=== PATIENT | male | born 1950 | race Caucasian/White ===

== ENCOUNTER 2024-07-29 06:16 | Emergency (ER) | payer MEDICARE, BC, SELFPAY ==
[2024-07-29] VITALS (20 sets, daily range): BP systolic 91–162; BP diastolic 52–107; PULSE 62–96; RESP 11–39; TEMP 36.6; O2SAT 89–98; BMI 27.2
--- OUTSIDE RECORDS SUMMARY | 2024-07-29 06:18 | XMS_ITS | Clinical Summary ---
Author Organization [email or web address] Address [address] [place] [id number] Care Team Providers Care Premium Cancellation Clerk Name Role Phone Brianna Garcia MD Primary Care Provider [phone] Allergies No known active allergies Medications timoloL maleate (TIMOPTIC) 0.5 % ophthalmic solution Place 1 Drop into both eyes 2 times daily. 05/16/19 22 Active aspirin (ECOTRIN) 81 mg enteric coated tablet Take 1 Tablet (81 mg) by mouth once daily with a meal. 0 02/24/19 23 Active latanoprost (XALATAN) 0.005 % ophthalmic solution Place 1 Drop into right eye once daily in the evening. 12/20/19 23 Active rosuvastatin 10 mg tabletIndications: Hyperlipidemia, unspecified hyperlipidemia type Take 1 Tablet (10 mg) by mouth at bedtime. 90 Tablet 3 07/24/19 25 Active rosuvastatin 5 mg tabletIndications: Hyperlipidemia, unspecified hyperlipidemia type Take 1 Tablet (5 mg) by mouth at bedtime. 90 Tablet 3 05/21/19 25 025 Discontin ued(*Medi cation adjustmen t) nitroglycerin 0.4 mg sublingual tabletIndications: Preprocedural cardiovascular examination Place 2 Tablets (0.8 mg) under the tongue one time. 07/22/19 25 025 Discontin ued(*Med complete/ Regimen complete/ Level of care change) lidocaine 2% (PF) 100 mg/5 mL (2 %) injectionIndicatio ns:Preprocedural examination Inject 80 mg intravenous one time. 07/22/19 25 025 Discontin ued(*Med complete/ Regimen complete/ Level of care change) Active Problems Problem Noted Date Diagnosed Date Atrial fibrillation 07/28/2024 Overview (07/28/2024): Identified on Zio patch 07/2024 Pulmonary nodules 09/08/2022 Overview (09/23/2022): Right side. Noted on CT coronary arteries July 2020. Repeat CT chest August 2022. One year follow up recommended. Hyperlipidemia 01/31/2021 Elevated coronary artery calcium score Screen for colon cancer 07/09/2008 Overview (03/14/2018): Colonoscopy 06/2008 normal repeat in 10 years Colonoscopy 02/2018 normal, repeat in 10 years Resolved Problems Problem Noted Date Diagnosed Date Resolved Date PMR (polymyalgia rheumatica) 01/31/2021 05/08/2023 Encounters Date Type Department Care Team Description 07/28/2024 10:45 AM CDT Office Visit [facility] [address] [place] [address] Brianna Garcia MD Results 07/28/2024 Travel 07/26/2024 Travel 07/25/2024 Telephone [facility] [address] [place] [address] Brianna Garcia MD Appointment 07/23/2024 Orders Only [facility] [address] [place] [address] Brianna Garcia MD <No scans attached> 07/21/2024 10:30 AM CDT Ancillary Procedure [facility] [address] [facility] [address] [place] [address] 07/21/2024 Travel 07/17/2024 Travel 07/04/2024 Travel 07/01/2024 11:45 AM CDT Office Visit [facility] [address] [place] [address] Brianna Garcia MD Blood Pressure (Stress test results); Immunization/Injection ; Immunization/Injection (COVID-19 vaccine) 07/01/2024 8:45 AM CDT Office Visit [place] [address] [place] [address] 06/30/2024 8:00 AM CDT Office Visit [facility] [address] [place] [address] Cardiovascular Diagnostic Testing (Stress echo) 06/30/2024 Travel 06/12/2024 11:00 AM CDT Ancillary Procedure [facility] [address] [place] [address] 06/12/2024 Travel 05/20/2024 4:05 PM CDT Office Visit [facility] [address] [place] [address] Brianna Garcia MD Medicare ANNUAL (subsequent) Visit (73 yr old male) 05/20/2024 Travel 05/16/2024 Travel from Last 3 Months Immunizations Immunization Administration Dates Next Due COVID-19 VACCINE SPIKEVAX (M ODERNA 50MCG/0.5ML) 12YO+ PFS 07/01/2024,12/13/2023 COVID-19 vaccine (Pfizer-Bio NTech 30mcg/0.3mL) 12YO+ BIVALENT PF, MDV 11/28/2021 COVID-19 vaccine (Pfizer-Bio NTech 30mcg/0.3mL) 12YO+ FLO-SUCROSE PF, MDV 06/13/2021 COVID-19 vaccine (Pfizer-Bio NTech 30mcg/0.3mL) PF, MDV 01/05/2021,04/24/2020,04/03/2020 Influenza, IIV3 (Age >=3 years) 12/04/2015,11/21,11/23/2010 Influenza, IIV4 11/22/2016,12/17/2014,11/27/2012 Influenza, IIV4 (=>6mos) MDV 11/24/2015 Influenza, Inactivated AIIV4 (Age 65+ Years) Preserv Free 12/14/2022,11/28/2021,11/18/2020,12/14 Influenza, Inactivated IIV3 (Age 65+ Years) Preserv Free 12/13/2023,11/19/2017 Pneumococcal Conj 20-valent (Prevnar 20) 06/30/2021 Pneumococcal Poly,23-Valent (Pneumovax) 12/15/2019 RSV, Bivalent Vaccine Recons tituted (Abrysvo 120MCG/0.5mL) 12/14/2022 Tdap 06/19/2017 Yellow Fever 03/07/2006 Zoster (Shingrix-RZV, recombinant) 01/07/2018, Zoster (Zostavax-ZVL, live) 04/03/2016 Family History Medical History Relation Name Comments Diabetes Brother 1 Heart attack Brother 1 Cancer-prostate Brother 2 Autoimmune disease Father Cancer Mother Lung Heart Disease Paternal Grandfather Diabetes Paternal Grandmother Relation Name Status Comments Brother 1 Brother 2 Brother 3 Alive Father Mother Paternal Grandfather Paternal Grandmother Social History Tobacco Use Types Packs/Day Years Used Date Smoking Tobacco: Never Smokeless Tobacco: Never Tobacco Cessation:Counseling Given: Yes Alcohol Use Standard Drinks/Week Comments Yes 0 (1 standard drink = 0.6 oz pur e alcohol) 2-3 drinks per week PHQ-2 Answer Date Recorded PHQ-2 TOTAL SCORE 0 05/20/2024 Social Connections Answer Date Recorded Do you often feel lonely or isolated from those around you? 0 05/20/2024 Financial Resource Strain Answer Date R ecorded Difficulty of Paying Living Expenses 3 05/20/2024 Difficulty of Paying Living Expenses Not on file 05/20/2024 Food Insecurity Answer Date Recorded Do you worry your food will run out before you are able to buy more? 1 05/20/2024 Transportation Needs Answer Date Record ed Does lack of transportation keep you from medica l appointments? 1 05/20/2024 Does lack of transportation keep you from work, meetings or getting things that you need? 1 05/20/2024 Housing Stability Answer Date Recorded What is your housing situation today? 1 05/20/2024 Utilities Answer Date Recorded Do you have trouble paying f or utilities (for example, heat, electricity, water, phone)? 1 05/20/2024 Sex and Gender Information Value Date Recorded Sex Assigned at Not on file Legal Sex Male 6:39 AM [employer] Gender Identity Not on file Sexual Orientation Not on file Obstetrics History Last Filed Vital Signs Vital Sign Reading Time Taken Comments Blood Pressure 107/71 07/28/2024 10:47 AM CDT Pulse 70 07/28/2024 10:47 AM CDT Temperature 37 C (98.6 F) 07/11/2021 2:31 PM CDT Respiratory Rate 16 09/28/2020 6:43 PM CDT Oxygen Saturation 99% 07/28/2024 10:47 AM CDT Inhaled Oxygen Concentration - - Weight 88.5 kg (195 lb) 07/28/2024 10:47 AM CDT Height 178 cm (5' 10.08) 05/20/2024 4:05 PM CDT Body Mass Index 27.92 05/20/2024 4:05 PM CDT Plan of Treatment Upcoming Encounters Date Type Department Care Team (Late st Contact Info) Description 09/08/2024 8:30 AM CDT Office Visit [facility] [id number] [place] [address] [address] [place] [address] Jomar Rodriguez MD [address] [place], [place] [id number] 10/01/2024 8:30 AM CDT Ancillary Procedure [facility] [address] [place] [address] Health Maintenance Due Date Last Done Comments BMI (ht and wt on same day) for age 18+ 05/20/2025 05/20/2024, 05/08/2023, 02/24/2022, Additional history exists Depression screening for age 12+ 05/20/2025 05/20/2024, 05/08/2023, 02/24/2022, Additional history exists Medicare Wellness for age 65+ 05/21/2025 05/20/2024, 05/08/2023, 02/24/2022, Additional history exists Tetanus booster 06/20/2027 06/19/2017 Colonoscopy through age 75 03/14/202803/14, 03/14/2018, 03/14/2018, Additional history exists Lipids for age 45-75 05/20/2029 05/20/2024, 05/08/2023, 02/24/2022, Additional history exists Hepatitis C screening for age 18-79 Completed 04/03/2016 Tdap Completed 06/19/2017 Zoster (shingles) series for age 50+ Completed 01/07/2018, 06/19/2017, 04/03/2016 Pneumococcal series for age 50+ Completed 06/30/2021, 12/15/2019 RSV vaccine for adults or Completed 12/14/2022 Influenza Vaccine Completed 12/13/2023, , 11/28/2021, Additional history exists COVID-19 vaccine series Completed 07/02/19, 12/13/2023, 12/14/2022, Additional history exists Hepatitis B series for 19+ Aged Out N o longer eligible based on patient's age to complete this topic Procedures Procedure Name Priority Date/Time Associated Diagnosis Comments CT CARDIAC CORONARY ARTERIES CV DUAL READ Routine 07/21/2024 11:06 AM CDT HSIEH (dyspnea on exertion) Elevated coronary artery calcium score Abnormal ECG during exercise stress test Chest pain, unspecified type CT CARDIAC CORONARY ARTERIES RAD DUAL READ Routine 07/21/2024 11:06 AM CDT HSIEH (dyspnea on exertion) Elevated coronary artery calcium score Abnormal ECG during exercise stress test EXTENDED HOLTER Routine 07/01/2024 Abnormal ECG during exercise stress test ECHO STRESS EXERCISE WO CONTRAST W COLOR W LTD DOPPLER Routine 06/30/2024 8:54 AM CDT HSIEH (dyspnea on exertion) Atypical chest pain Hyperlipidemia, unspecified hyperlipidemia type SCAN-ELECTROCARDIOG JAMMIE EKG 06/30/2024 12:00 AM CDT ECHO TTE COMPLETE WO CONTRAST Routine 06/12/2024 11:19 AM CDT HSIEH (dyspnea on exertion) CBC W PLT NO DIFF Routine 05/20/2024 5:0 0 PM CDT HSIEH (dyspnea on exertion) BASIC METABOLIC PANEL Routine 05/20/2024 5:00 PM CDT Elevated blood pressure reading without diagnosis of hypertension PSA TOTAL Routine 05/20/2024 5:00 PM CDT Screening for prostate cancer LIPID PANEL Routine 05/20/2024 5:00 PM CDT Hyperlipidemia, unspecified hyperlipidemia type PRO-BNP Routine 05/20/2024 5:00 PM CDT HSIEH (dyspnea on exertion) COLONOSCOPY SCREENING Routine 03/14/2018 11:[address] Screening for colon cancer ANTI HCV Routine 04/03/2016 4:[address] Need for hepatitis C screening test from Last 3 Months or Most Recently Relevant to Health Maintenance Results * CT CARDIAC CORONARY ARTERIES CV DUAL READ (07/21/2024 11:06 AM CDT) Anatomical Region Laterality Modality HEART Computed Tomogra phy 07/21/2024 10:3 3 AM CDT Narrative 07/21/2024 3:32 PM CDT [facility] Cardiac CT Report Name: FABIO LOONEY : Scan Date: Accession Number: [id number] Status: Final Electronically signed by Devan Palomares 15:14:42 VITALS HEIGHT: 70 in (178 cm) WEIGHT: 194 lbs (88 kgs) BSA: 2.06 m^2 BMI: 28 kg/m^2 BP: 125 / 81 mmHg BASELINE HR: 92 BPM HEART RHYTHM: Other... DESCRIBE HEART RHYTHM:: PAC, PVC FINAL IMPRESSION 1. Prominent non-obstructive coronary artery disease. A. Total coronary artery calcium score 481. EVANS percentile based on age, gender, and race is 71. B. Total atheroma plaque volume: 153 mm3; 4.1% per cent atheroma volume. (High risk plaque burden: Coronary calcium score >300 and percentage atheroma volume >=5%). 2. No coronary lesion to account for symptoms. RECOMMENDATIONS: The burden of coronary atherosclerosis places this patient at substantially increased cardiovascular event risk (10-year risk > 20%). Recommend aggressive risk factor modification. STUDY QUALITY: Study quality is good. CAD-RADS: CAD-RADS Classification 1 (<25% stenosis). CALCIUM SCORING: Total coronary artery calcium score 481. EVANS percentile based on age, gender, and race is 71. DOMINANCE: Right dominant coronary artery system. LM: The LM has non-calcified atherosclerosis. The LM has partially calcified atherosclerosis. There is a <25% LM stenosis. LAD: The proximal LAD has partially calcified atherosclerosis. There is a <25% proximal LAD stenosis. The mid LAD has non-calcified atherosclerosis. The mid LAD has partially calcified atherosclerosis. There is a <25% mid LAD stenosis. There is no distal LAD stenosis. D1: The first diagonal has non-calcified atherosclerosis. There is a <25% first diagonal stenosis. LCX: The proximal LCx has non-calcified atherosclerosis. The proximal LCx has partially calcified atherosclerosis. There is a <25% proximal LCx stenosis. The mid LCx has partially calcified atherosclerosis. There is a <25% mid LCx stenosis. There is no distal LCx stenosis. OM1: There is a <25% first obtuse marginal stenosis. RCA: The proximal RCA has non-calcified atherosclerosis. The proximal RCA has partially calcified atherosclerosis. There is a <25% proximal RCA stenosis. The mid RCA has partially calcified atherosclerosis. There is a <25% mid RCA stenosis. There is a <25% distal RCA stenosis. RIGHT PDA: There is a <25% right PDA stenosis. RIGHT PLB: There is a <25% right posterolateral stenosis. OTHER FINDINGS: Normal proximal ascending aorta. Normal pericardium. No left atrial appendage thrombus. Total atheroma plaque volume: 153 mm3 4.1% atheroma volume Coronary artery plaque quantification (calculated by [facility] analysis): (High risk plaque burden defined by any of the following: Presence of >=70% diameter stenosis Coronary calcium score >1000 Coronary calcium score >300 and percentage atheroma volume >=5% Percentage atheroma volume >15%) CALCIUM SCORING TABLE . . Number of Lesions Pattern of Calcium Volume Total Score +-------+ + +--------+ + LM 41 LAD 224 LCx 112 RCA 104 Ramus '-------+ + +--------+ ' SCAN INFO TEST TYPE: Calcium score, Coronary CT Angiography SCANNER HANDLE BENDER: SIEMENS SCANNER MODEL: Cryoocyte DOSE REDUCTION ALGORITHM: Prospective/[id number] PHASE UNITS: % START PHASE: 65 % END PHASE: 75 % EKG GATED: Yes PRE-CONTRAST: Yes POST-CONTRAST: Yes GENERAL CONTRAST AGENT CONTRAST AGENT USED?: Yes TYPE: Omnipaque 350 DOSE: 100 ml RATE: 6.5 ml/s ROUTE: IV ARM: Left SERUM CREATININE: 0.89 mg/dL GFR: 89.56 ml/min/1.73m^2 CREATININE DATE: CT CONTRAST REACTION: None MEDICATION ADMINISTERED DURING SCAN TYPE: Nitroglycerin, sublingual NITROGLYCERIN, TOTAL DOSE: 0.8 mg RADIATION DOSE DLP: 140 KV: 90 SETUP PATIENT TYPE: Outpatient REFERRING PHYSICIAN: BRIANNA GARCIA TECHNOLOGIST: Leo Alexander BILLING Patient Account [id number] ICD10 Codes R06.09, R93.1, R94.31, R07.9 Report generated by [employer], a product of [employer] us Brianna Garcia MD CT Final Resu lt * CT CARDIAC CORONARY ARTERIES RAD DUAL READ (07/21/2024 11:06 AM CDT) Anatomical Region Laterality Modality HEART Computed Tomogra phy 07/22/2024 2:41 AM CDT Narrative 07/22/2024 2:41 AM CDT For Patients: As a result of the Century Cures Act, medical imaging exams and procedure reports are released immediately into your electronic medical record. You may view this report before your referring provider. If you have questions, please contact your health care provider. THIS IS THE RADIOLOGY OVER READ REPORT OF A DUAL READ STUDY. READ THE SEPARATE CARDIOLOGY REPORT FOR CARDIOVASCULAR FINDINGS. REPORTS MAY BE FINALIZED AT DIFFERENT TIMES. Indication: Cardiac over-read. Technique: Please see cardiology report for technical information. This exam is being performed in conjunction with the services provided by the [facility] ([facility]). Comparison: 10/08/2023 Findings: No definite suspicious nodule nodules. Previously demonstrated 7 mm right apical nodule is outside the field of view. Mild subsegmental atelectasis and/or scarring. Mediastinum is unremarkable. Upper abdomen is unremarkable. No acute or suspicious osseous lesions. Impression: 1. See separate cardiology report for cardiac findings. 2. No definite acute or significant extra cardiovascular findings. Please note that all CT scans at this facility use dose modulation, iterative reconstruction, and/or weight-based dosing when appropriate to reduce radiation dose to as low as reasonably achievable. Dictated by Jasbir Chavira MD @ 07/22/2024 2:41:27 AM (Electronically Signed) Procedure Note Jasbir Chavira MD - 07/22/2024 For Patients: As a result of the Century Cures Act, medical imagingexams and procedure reports are released immediately into your electronicmedical record. You may view this report before your referring provider.If you have questions, please contact your health care provider. THIS IS THE RADIOLOGY OVER READ REPORT OF A DUAL READ STUDY. READ THESEPARATE CARDIOLOGY REPORT FOR CARDIOVASCULAR FINDINGS. REPORTS MAY BEFINALIZED AT DIFFERENT TIMES. Indication: Cardiac over-read. Technique: Please see cardiology report for technical information. This exam is being performed in conjunction with the services provided bythe [facility] ([facility]). Comparison: 10/08/2023 Findings: No definite suspicious nodule nodules. Previously demonstrated 7 mm rightapical nodule is outside the field of view. Mild subsegmental atelectasisand/or scarring. Mediastinum is unremarkable. Upper abdomen isunremarkable. No acute or suspicious osseous lesions. Impression: 1. See separate cardiology report for cardiac findings. 2. No definite acute or significant extra cardiovascular findings. Please note that all CT scans at this facility use dose modulation,iterative reconstruction, and/or weight-based dosing when appropriate toreduce radiation dose to as low as reasonably achievable. Dictated by Jasbir Chavira MD @ 07/22/2024 2:41:27 AM (Electronically Signed) us Brianna Garcia MD CT Final Resu lt * ZIO PATCH XT - weekly to monthly symptoms. (07/01/2024) 07/01/2024 Narrative Alfredo Mireles MD - 07/23/2024 12:00 AM CDT Agree with Findings. Paroxysmal atrial fibrillation (3% burden, up to 4 hours 33 min duration with avg rate 107 bpm) without associated symptoms. Please see scan document for full report. Signed By Alfredo Mireles MD Procedure Note Alfredo Mireles MD - 07/23/2024 Agree with Findings. Paroxysmal atrial fibrillation (3% burden, up to 4hours 33 min duration with avg rate 107 bpm) without associatedsymptoms. Please see scan document for full report. Signed By Alfredo Mireles MD us Brianna Garcia MD CARDIAC SERVICES ORD Final Result * ECHO STRESS EXERCISE WO CONTRAST W COLOR W LTD DOPPLER (06/30/2024 8:54 AM CDT) AORTIC VALVE MEAN PG 4 mmHg EJECTION FRACTION 56 % PEAK TR VELOCITY 2.6 m/s LVEDD 5.8 cm Anatomical Region Laterality Modality Ultrasound 06/30/2024 8:19 AM CDT Narrative 06/30/2024 1:38 PM CDT STRESS ECHOCARDIOGRAM FABIO LOONEY : 1950 73 years Study Date: 06/30/2024 8:19:11 AM Gender: M BP: 169/92 mmHg Height: 178.00 cm BSA: 2.07 m Weight: 89.00 kg Tech: SIDDHARTHA Referring MD: BRIANNA GARCIA Site: [facility] Reading Location: Mobile-OP Patient Location: Outpatient. Procedure: Stress Echo, Color Doppler and Limited Spectral Doppler. Bandar stress echo. Indication for study: Chest Pain, Dyspnea Cardiac Rhythm: Regular.Study quality: Excellent. Final Impressions: 1. Submaximum stress test with 82.2% of age predicted maximum heart rate achieved. 2. During stress exam the patient developed dizziness. 3. See separate report for EKG interpretation. 4. Post stress, decreased left ventricular size, increased global systolic function with an estimated EF of 70 to 75%. 5. Negative stress echo for ischemia. 6. At rest there was normal left ventricular size and systolic function. 7. Right ventricular cavity size is mildly enlarged, global systolic RV function is normal. 8. Moderate biatrial enlargement 9. The aortic valve is normal and trileaflet, no stenosis and trivial regurgitation. 10. Dilated sinus of Valsalva, diameter of 4.2 cm (upper limit of normal for age, sex, and BSA is 4.2 cm), Height Index 2.37 cm/m. Stress Data: HR Systolic Diastolic Time Duration Minutes Seconds Baseline 55 bpm 169 92 mmHg 8 :38 Peak 122 bpm 184 84 mmHg Max Pred HR 148 % of Max 82% Double Product 14000 Echo Findings:This is a negative stress echo test for ischemia. Post stress, decreased left ventricular size, increased global systolic function with an estimated EF of 70 to 75%. LV regional wall motion abnormalities are not present post exercise. EKG:See separate report for EKG interpretation. Exam Protocol:The patient presents with no significant symptoms at baseline. The patient exercised 8 min 38 sec to stage III according to the Bandar stress echo protocol. Test terminated due to Dizziness. 10.2 METS were achieved. The patient achieved a heart rate of 122 bpm which is 82.2% of maximum predicted heart rate. Maximum systolic blood pressure was 184 [place] [address]. Submaximum stress test with 82.2% of age predicted maximum heart rate achieved. The blood pressure response was normal. The patient developed dizziness during the stress exam. Low (less than 1% annual mortality rate) non invasive risk stratification. LV Wall Scoring: Stage: All segments are normal. REST Stage: All segments are normal. IMPOST Chamber Sizes and Function Normal left ventricular size, normal global systolic function. LV regional wall motion abnormalities are not present. Left atrial size is moderately enlarged. Right ventricular cavity size is mildly enlarged, global systolic RV function is normal. The right atrium is moderately enlarged. Right atrial area is 25 cm . The pulmonary artery is of normal size and origin. The sinus of Valsalva is dilated. The ascending aorta is normal sized. Valves, RV Pressures and Diastolic Function The aortic valve is normal in structure and trileaflet, no stenosis and trivial regurgitation. The mitral valve is normal in structure, mild mitral regurgitation. The tricuspid valve is normal in structure, trace tricuspid regurgitation. The tricuspid regurgitant velocity is 2.6 m/s, the estimated right ventricular systolic pressure is 26 mmHg plus right atrial pressure. There is normal estimated pulmonary pressure by tricuspid regurgitation velocity and right atrial pressure. The pulmonic valve is normal. No pulmonic regurgitation is present on color flow. Masses, Effusion, Shunts There is no pericardial effusion. MEASUREMENTS AND CALCULATIONS 2-D Measurements and LV Function: LVID (d) 5.8 cm LV FS% (2D) 34 % LVID (s) 3.8 cm LVOT diameter 2.7 cm IVS (d) 0.9 cm HR 55 bpm LVPW (d) 0.9 cm LA Vol index 69 ml/m2 Ao Sinus 4.2 cm RA Vol index 50 ml/m2 Ao Sinus ULN 4.2 cm RA area 25 cm Asc Ao 4.0 cm RV Basal Diam 5.0 cm Asc Ao ULN 4.3 cm RV Mid Diam 4.7 cm LA 4.9 cm Diastology: Mitral Tissue Doppler E Peak 0.53 m/s e', Septum 0.05 m/s A Peak 0.41 m/s e', Lateral 0.07 m/s E/A 1.3 E/e' Average 8.59 DT 375 msec Aortic Valve: Vmax 1.4 m/s KHADAR (V) 3.63 cm VTI 0.31 m KHADAR (I) 3.92 cm LVOT V max 0.9 m/s Max PG 8 mmHg LVOT VTI 0.22 m Mean PG 4 mmHg SV 122 ml Dim Index 0.70 SV index 59 ml/m Mitral Valve: MVA 2.0 cm MV P 1/2 109 msec Tricuspid Valve and estimated PA pressures: TR Vmax 2.6 m/s TAPSE 2.8 cm TR maxG 26 mmHg . This study was interpreted by an [facility] accredited facility. Final Procedure Note Jasbir Louise MD - 06/30/2024 STRESS ECHOCARDIOGRAM FABIO LOONEY : 1950 73 years Study Date: 06/30/2024 8:19:11 AM Gender: M BP: 169/92 mmHg Height: 178.00 cm BSA: 2.07 m Weight: 89.00 kg Tech: SIDDHARTHA Referring MD: BRIANNA GARCIA Site: [facility] Reading Location: Mobile-OP Patient Location: Outpatient. Procedure: Stress Echo, Color Doppler and Limited Spectral Doppler. Brucestress echo. Indication for study: Chest Pain, Dyspnea Cardiac Rhythm: Regular.Study quality: Excellent. Final Impressions: 1. Submaximum stress test with 82.2% of age predicted maximum heart rateachieved. 2. During stress exam the patient developed dizziness. 3. See separate report for EKG interpretation. 4. Post stress, decreased left ventricular size, increased globalsystolic function with an estimated EF of 70 to 75%. 5. Negative stress echo for ischemia. 6. At rest there was normal left ventricular size and systolicfunction. 7. Right ventricular cavity size is mildly enlarged, global systolic RVfunction is normal. 8. Moderate biatrial enlargement 9. The aortic valve is normal and trileaflet, no stenosis and trivialregurgitation. 10. Dilated sinus of Valsalva, diameter of 4.2 cm (upper limit of normalfor age, sex, and BSA is 4.2 cm), Height Index 2.37 cm/m. Stress Data: HR Systolic Diastolic Time Duration Minutes Seconds Baseline 55 bpm 169 92 mmHg 8 :38 Peak 122 bpm 184 84 mmHg Max Pred HR 148 % of Max 82% Double Product [id number] Echo Findings:This is a negative stress echo test for ischemia. Poststress, decreased left ventricular size, increased global systolicfunction with an estimated EF of 70 to 75%. LV regional wall motionabnormalities are not present post exercise. EKG:See separate report for EKG interpretation. Exam Protocol:The patient presents with no significant symptoms atbaseline. The patient exercised 8 min 38 sec to stage III according to [facility] stress echo protocol. Test terminated due to Dizziness. 10.2 METSwere achieved. The patient achieved a heart rate of 122 bpm which is 82.2%of maximum predicted heart rate. Maximum systolic blood pressure [place] 184[place] [address]. Submaximum stress test with82.2% of age predicted maximum heart rate achieved. The blood pressureresponse was normal. The patient developed dizziness during the stressexam. Low (less than 1% annual mortality rate) non invasive riskstratification. LV Wall Scoring: Stage: All segments are normal. REST Stage: All segments are normal. IMPOST Chamber Sizes and Function Normal left ventricular size, normal global systolic function. LV regionalwall motion abnormalities are not present. Left atrial size is moderatelyenlarged. Right ventricular cavity size is mildly enlarged, globalsystolic RV function is normal. The right atrium is moderately enlarged.Right atrial area is 25 cm . The pulmonary artery is of normal size andorigin. The sinus of Valsalva is dilated. The ascending aorta is normalsized. Valves, RV Pressures and Diastolic Function The aortic valve is normal in structure and trileaflet, no stenosis andtrivial regurgitation. The mitral valve is normal in structure, mildmitral regurgitation. The tricuspid valve is normal in structure, tracetricuspid regurgitation. The tricuspid regurgitant velocity is 2.6 m/s,the estimated right ventricular systolic pressure is 26 mmHg plus rightatrial pressure. There is normal estimated pulmonary pressure by tricuspidregurgitation velocity and right atrial pressure. The pulmonic valve isnormal. No pulmonic regurgitation is present on color flow. Masses, Effusion, Shunts There is no pericardial effusion. MEASUREMENTS AND CALCULATIONS 2-D Measurements and LV Function: LVID (d) 5.8 cm LV FS% (2D) 34 % LVID (s) 3.8 cm LVOT diameter 2.7 cm IVS (d) 0.9 cm HR 55 bpm LVPW (d) 0.9 cm LA Vol index 69 ml/m2 Ao Sinus 4.2 cm RA Vol index 50 ml/m2 Ao Sinus ULN 4.2 cm RA area 25 cm Asc Ao 4.0 cm RV Basal Diam 5.0 cm Asc Ao ULN 4.3 cm RV Mid Diam 4.7 cm LA 4.9 cm Diastology: Mitral Tissue Doppler E Peak 0.53 m/s e', Septum 0.05 m/s A Peak 0.41 m/s e', Lateral 0.07 m/s E/A 1.3 E/e' Average 8.59 DT 375 msec Aortic Valve: Vmax 1.4 m/s KHADAR (V) 3.63 cm VTI 0.31 m KHADAR (I) 3.92 cm LVOT V max 0.9 m/s Max PG 8 mmHg LVOT VTI 0.22 m Mean PG 4 mmHg SV 122 ml Dim Index 0.70 SV index 59 ml/m Mitral Valve: MVA 2.0 cm MV P 1/2 109 msec Tricuspid Valve and estimated PA pressures: TR Vmax 2.6 m/s TAPSE 2.8 cm TR maxG 26 mmHg . This study was interpreted by an [facility] accredited facility. Final us Brianna Garcia MD ECHO ORD Final Resu lt * SCAN-ELECTROCARDIOGRAM EKG (06/30/2024 12:00 AM CDT) us Scanner OTHER Final Result * ECHO TTE COMPLETE WO CONTRAST (06/12/2024 11:19 AM CDT) AORTIC VALVE MEAN PG 6 mmHg EJECTION FRACTION 57 % LVEDD 5.0 cm EJECTION FRACTION 55 - 60% Anatomical Region Laterality Modality Ultrasound 06/12/2024 11:0 1 AM CDT Narrative 06/12/2024 11:52 AM CDT ECHOCARDIOGRAM FABIO LOONEY : 1950 73 years Study Date: 06/12/2024 11:01:10 AM Gender: M BP: 100/58 mmHg Height: 180.00 cm BSA: 2.09 m Weight: 89.00 kg Tech: [facility] Referring MD: BRIANNA GARCIA Site: [facility] Reading Location: Mobile-OP Patient Location: Outpatient. Procedure: 2D, Color Doppler and Spectral Doppler. Indication for study: HSIEH (dyspnea on exertion) Cardiac Rhythm: Normal sinus.Study quality: Good. Final Impressions: 1. Normal left ventricular size, normal wall thickness, normal global systolic function, calculated EF of 57 %. 2. Right ventricular cavity size is normal, global systolic RV function is normal. 3. The aortic valve is trileaflet and sclerotic, no stenosis and trivial regurgitation. 4. Moderately enlarged left atrium. Comparison Compared to prior exam of 11/09/21, there has been no significant change. Chamber Sizes and Function Normal left ventricular size, normal wall thickness, normal global systolic function, calculated EF of 57 %. No resting regional wall motion abnormality visualized. Left atrial size is moderately enlarged. Right ventricular cavity size is normal, global systolic RV function is normal. The right atrium is mildly enlarged. Right atrial volume index is 33 ml/m . Right atrial area is 22 cm . The pulmonary artery is of normal size and origin. The sinus of Valsalva is normal sized. The ascending aorta is normal sized. Valves, RV Pressures and Diastolic Function The aortic valve is trileaflet and sclerotic, no stenosis and trivial regurgitation. The mitral valve is normal in structure, trace mitral regurgitation. Mild mitral annular calcification is present. Normal diastolic function. The tricuspid valve is normal in structure, trace tricuspid regurgitation. The pulmonic valve is normal. No pulmonary regurgitation. Masses, Effusion, Shunts There is no pericardial effusion. The inferior vena cava is normal sized, respiratory size variation greater than 50%. No left to right shunting was detected by limited color flow Doppler interrogation of the interatrial septum. MEASUREMENTS AND CALCULATIONS 2-D Measurements and LV Function: LVID (d) 5.0 cm Planimetered EF 57 % LVID (s) 2.4 cm LV FS% (2D) 52 % IVS (d) 1.1 cm LVOT diameter 2.5 cm LVPW (d) 1.1 cm HR 60 bpm Ao Sinus 3.8 cm LA Vol index 73 ml/m2 Ao Sinus ULN 4.2 cm RA Vol index 33 ml/m2 Asc Ao 3.9 cm RA area 22 cm Asc Ao ULN 4.3 cm RV Basal Diam 4.7 cm LA 4.7 cm Diastology: Mitral Tissue Doppler Pulmonary veins E Peak 0.9 m/s e', Septum 0.08 m/s Pulm s 52.3 cm/s A Peak 0.8 m/s e', Lateral 0.11 m/s Pulm d 50.1 cm/s E/A 1.1 E/e' Average 9.99 Pulm s/d ratio 1.04 DT 252 msec Aortic Valve: Vmax 1.6 m/s KHADAR (V) 4.25 cm VTI 0.33 m KHADAR (I) 3.95 cm LVOT V max 1.4 m/s Max PG 10 mmHg LVOT VTI 0.27 m Mean PG 6 mmHg SV 130 ml Dim Index 0.83 SV index 62 ml/m CO 7.8 l/min CI 3.7 l/min/m Mitral Valve: MVA 3.0 cm MV P 1/2 73 msec MV Mean G 2 mmHg MV VTI 0.34 m Tricuspid Valve and estimated PA pressures: TAPSE 3.2 cm Pulmonic Valve: PV AT 159 msec . This study was interpreted by an [facility] accredited facility. Final Procedure Note Alfredo Mierles MD - 06/12/2024 ECHOCARDIOGRAM FABIO LOONEY : 1950 73 years Study Date: 06/12/2024 11:01:10 AM Gender: M BP: 100/58 mmHg Height: 180.00 cm BSA: 2.09 m Weight: 89.00 kg Tech: [facility] Referring MD: BRIANNA GARCIA Site: [facility] Reading Location: Mobile-OP Patient Location: Outpatient. Procedure: 2D, Color Doppler and Spectral Doppler. Indication for study: HSIEH (dyspnea on exertion) Cardiac Rhythm: Normal sinus.Study quality: Good. Final Impressions: 1. Normal left ventricular size, normal wall thickness, normal globalsystolic function, calculated EF of 57 %. 2. Right ventricular cavity size is normal, global systolic RV functionis normal. 3. The aortic valve is trileaflet and sclerotic, no stenosis and trivialregurgitation. 4. Moderately enlarged left atrium. Comparison Compared to prior exam of 11/09/21, there has been no significantchange. Chamber Sizes and Function Normal left ventricular size, normal wall thickness, normal globalsystolic function, calculated EF of 57 %. No resting regional wall motionabnormality visualized. Left atrial size is moderately enlarged. Rightventricular cavity size is normal, global systolic RV function is normal.The right atrium is mildly enlarged. Right atrial volume index is 33ml/m . Right atrial area is 22 cm . The pulmonary artery is of normalsize and origin. The sinus of Valsalva is normal sized. The ascendingaorta is normal sized. Valves, RV Pressures and Diastolic Function The aortic valve is trileaflet and sclerotic, no stenosis and trivialregurgitation. The mitral valve is normal in structure, trace mitralregurgitation. Mild mitral annular calcification is present. Normaldiastolic function. The tricuspid valve is normal in structure, tracetricuspid regurgitation. The pulmonic valve is normal. No pulmonaryregurgitation. Masses, Effusion, Shunts There is no pericardial effusion. The inferior vena cava is normal sized,respiratory size variation greater than 50%. No left to right shunting wasdetected by limited color flow Doppler interrogation of the interatrialseptum. MEASUREMENTS AND CALCULATIONS 2-D Measurements and LV Function: LVID (d) 5.0 cm Planimetered EF 57 % LVID (s) 2.4 cm LV FS% (2D) 52 % IVS (d) 1.1 cm LVOT diameter 2.5 cm LVPW (d) 1.1 cm HR 60 bpm Ao Sinus 3.8 cm LA Vol index 73 ml/m2 Ao Sinus ULN 4.2 cm RA Vol index 33 ml/m2 Asc Ao 3.9 cm RA area 22 cm Asc Ao ULN 4.3 cm RV Basal Diam 4.7 cm LA 4.7 cm Diastology: Mitral Tissue Doppler Pulmonary veins E Peak 0.9 m/s e', Septum 0.08 m/s Pulm s 52.3 cm/s A Peak 0.8 m/s e', Lateral 0.11 m/s Pulm d 50.1 cm/s E/A 1.1 E/e' Average 9.99 Pulm s/d ratio 1.04 DT 252 msec Aortic Valve: Vmax 1.6 m/s KHADAR (V) 4.25 cm VTI 0.33 m KHADAR (I) 3.95 cm LVOT V max 1.4 m/s Max PG 10 mmHg LVOT VTI 0.27 m Mean PG 6 mmHg SV 130 ml Dim Index 0.83 SV index 62 ml/m CO 7.8 l/min CI 3.7 l/min/m Mitral Valve: MVA 3.0 cm MV P 1/2 73 msec MV Mean G 2 mmHg MV VTI 0.34 m Tricuspid Valve and estimated PA pressures: TAPSE 3.2 cm Pulmonic Valve: PV AT 159 msec . This study was interpreted by an [facility] accredited facility. Final us Brianna Garcia MD ECHO ORD Final Resu lt * (ABNORMAL) CBC W PLT NO DIFF (05/20/2024 5:00 PM CDT) WHITE BLOOD CELL COUNT 7.1 3.8 - 10.8 Thousand/u L [facility] RED BLOOD CELL COUNT 4.11(L) 4.20 - 5.80 Million/uL [facility] HEMOGLOBIN 11.3(L) 13.2 - 17.1 g/dL [facility] HEMATOCRIT 35.5(L) 38.5 - 50.0 % [facility] MCV 86.4 80.0 - 100.0 fL [facility] MCH 27.5 27.0 - 33.0 pg [facility] MCHC 31.8(L) 32.0 - 36.0 g/dL [facility] Comment: For adults, a slight decrease in the calculated MCHC value (in the range of 30 to 32 g/dL) is most likely not clinically significant; however, it should be interpreted with caution in correlation with other red cell parameters and the patient's clinical condition. RDW 12.6 11.0 - 15.0 % [facility] PLATELET COUNT 290 140 - 400 Thousand/u L [facility] [place] MPV 11.0 7.5 - 12.5 fL [facility] Blood BLOOD SPECIMEN / Unknown 05/20/2024 5:00 PM CDT 05/20/2024 5:01 PM CDT us Brianna Garcia MD HEMATOLOGY Final Resu lt [employer] [facility] [address] [place] [address], [facility] [address] [place] [address] * PSA TOTAL (DIAG OR SCREEN) (05/20/2024 5:00 PM CDT) PSA, TOTAL 0.53 < OR = 4.00 ng/mL [facility] [place] Comment: The total PSA value from this assay system is standardized against the WHO standard. The test result will be approximately 20% lower when compared to the equimolar-standardized total PSA (Toshia Norma). Comparison of serial PSA results should be interpreted with this fact in mind. This test was performed using the Siemens chemiluminescent method. Values obtained from different assay methods cannot be used interchangeably. PSA levels, regardless of value, should not be interpreted as absolute evidence of the presence or absence of disease. Blood BLOOD SPECIMEN / Unknown 05/20/2024 5:00 PM CDT 05/20/2024 5:01 PM CDT us Brianna Garcia MD CHEMISTRY Final Resu lt Performing Organization Address City/[facility]/ZIP Co de Phone Number [employer] [address] [address], [facility] [address] [place] [address] * (ABNORMAL) PRO-BNP (05/20/2024 5:00 PM CDT) NT PROBNP 204(H) <125 pg/mL [facility] Blood BLOOD SPECIMEN / Unknown 05/20/2024 5:00 PM CDT 05/20/2024 5:01 PM CDT Brianna Garcia MD SEND OUTS Final Resu lt Performing Organization Address [facility]/ZIP Co de Phone Number [employer] [address] [address], [facility] [address] [place] [address] * LIPID PANEL (05/20/2024 5:00 PM CDT) CHOLESTEROL, TOTAL 161 <200 mg/dL [facility] HDL CHOLESTEROL 52 > OR = 40 mg/dL [facility] TRIGLYCERIDES 112 <150 mg/dL [facility] LDL-CHOLESTEROL 88 mg/dL (calc) [facility] Comment: Reference range: <100 Desirable range <100 mg/dL for primary prevention; <70 mg/dL for patients with CHD or diabetic patients with > or = 2 CHD risk factors. LDL-C is now calculated using the Diane calculation, which is a validated novel method providing better accuracy than the Friedewald equation in the estimation of LDL-C. Shivam FERMIN et al. CECIL. 2013;310(19): 2706-3418 (http://education.Mobiotics/faq/LYN751) CHOL/HDLC RATIO 3.1 <5.0 (calc) [facility] NON HDL CHOLESTEROL 109 <130 mg/dL (calc) [facility] Comment: For patients with diabetes plus 1 major ASCVD risk factor, treating to a non-HDL-C goal of <100 mg/dL (LDL-C of <70 mg/dL) is considered a therapeutic option. Blood BLOOD SPECIMEN / Unknown 05/20/2024 5:00 PM CDT 05/20/2024 5:01 PM CDT Brianna Garcia MD CHEMISTRY Final Resu lt [employer] [facility] [address] [place] [address], [facility] [address] * BASIC METABOLIC PANEL (05/20/2024 5:00 PM CDT) [facility] GLUCOSE 82 65 - 99 mg/dL [facility] Comment: Fasting reference interval UREA NITROGEN (BUN) 16 7 - 25 mg/dL [facility] CREATININE 0.89 0.70 - 1.28 mg/dL [facility] EGFR 92 > OR = 60 mL/min/1. 73m2 [facility] BUN/CREATININE RATIO SEE NOTE: 6 - (calc) [facility] Comment: Not Reported: BUN and Creatinine are within reference range. SODIUM 139 135 - 146 mmol/L [facility] POTASSIUM 4.3 3.5 - 5.3 mmol/L [facility] CHLORIDE 104 98 - 110 mmol/L [facility] CARBON DIOXIDE 28 20 - 32 mmol/L [facility] ELECTROLYTE BALANCE 7 7 - 17 mmol/L (calc) [facility] CALCIUM 9.4 8.6 - 10.3 mg/dL [facility] Blood BLOOD SPECIMEN / Unknown 05/20/2024 5:00 PM CDT 05/20/2024 5:01 PM CDT Brianna Garcia MD CHEMISTRY Final Resu lt [employer] [facility] [address] [place] [address], [facility] [address] [place] [address] * COLONOSCOPY SCREENING (03/14/2018 11:[address]) Brianna Garcia MD GI PROCEDURE ORD Final Res ult * ANTI HCV [[id number]] (04/03/2016 4:[address]) HEPATITIS C ANTIBODY Non-Reacti ve Non-Reacti ve 04/03/2016 9:[address] [facility] Blood BLOOD SPECIMEN / Unknown Venipuncture / Unknown 04/03/2016 4:[address] 04/03/2016 4:[address] Narrative [facility] - 04/03/2016 9:[address] Antibodies to HCV not detected; does not exclude the possibility of exposure to HCV. Brianna Garcia MD SEND OUTS Final Resu lt [facility] 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
--- NOTE | 2024-07-29 06:34 | ED_ITS ---
HPI - Chest Pain General Date Seen: 07/29/24 Chief Complaint: Chest Pain Stated Complaint: Chest pain Time Seen by Provider: 07/29/24 06:30 Source: patient Mode of arrival: ambulatory Limitations: no limitations History of Present Illness HPI narrative: Patient is a 73-year-old male presenting to the emergency department for chest pain. States he still 1st noticed chest parent 05:00 but the pain has been getting worse since then. Describes it as a 6/10 pain. States he has had chest pain like this before but previously he will belch and then the symptoms will get better after 20 minutes. This pain has been more persistent and has gotten worse. States it is a 6/10 pain at this time. Is midsternal pain and does not radiate. Does state it hurts more when he takes a deep breath. Denies any shortness of breath, cough, fevers, abdominal pain, headache, vision changes, weakness, numbness. Has been dealing with intermittent lightheadedness for weeks now. Has been getting after a workup done outpatient and recently had a Zio patch and have follow-up yesterday for it. The Zio patch showed intermittent AFib. He also had a recent stress test done 1 month ago showing no signs of ischemia. Coronary CT scan shows some plaque buildup. His MYUK3Smss score was 1 so was not started on any blood thinners. He was already having rate control and was relatively hypotensive outpatient so was not started on a beta-carlos. Patient denies any history of blood clots. No other concerns noted at this time. Took an aspirin last night but no aspirin today. Related Data Home Medications ?Medication ?Instructions ?Recorded ?Confirmed aspirin 81 mg capsule 81 mg PO DAILY 07/29/2407/20 rosuvastatin 10 mg tablet 10 mg PO QPM 07/29/24 Previous Rx's ?Medication ?Instructions ?Recorded colchicine 0.6 mg tablet 0.6 mg PO BID #30 tabs 07/29 ibuprofen 800 mg tablet 800 mg PO Q8H PRN pain #30 t abs 07/29/24 Allergies Allergy/AdvReac Type Severity Reaction Status Date / Time No Known Drug Allergies Allergy Verified 07/29/24 06:27 Review of Systems Status of ROS Reports: 10 or more systems reviewed and unremarkable except as noted in History and below [facility] Medical History Elevated coronary artery calcium score ?R93.1 - Abnormal findings on diagnostic imaging of heart and coronary circulation (ICD-10) Hyperlipidemia ?E78.5 - Hyperlipidemia, unspecified (ICD-10) Pulmonary nodules ?R91.8 - Other nonspecific abnormal finding of lung field (ICD-10) Achilles tendinitis ?M76.60 - Achilles tendinitis, unspecified leg (ICD-10) PMR (polymyalgia rheumatica) ?M35.3 - Polymyalgia rheumatica (ICD-10) Atrial fibrillation ?I48.91 - Unspecified atrial fibrillation (ICD-10) Surgical History History of colonoscopy ?Z98.890 - Other specified postprocedural states (ICD-10) Social History Smoking Status: Never smoker Second hand tobacco smoke exposure: No How often do you have a drink containing alcohol: never AUDIT-C Alcohol total score: 0 Non-prescribed substance use: denies use Exam Narrative Exam Narrative: Const: Well-nourished, Well-developed, in mild distress Eyes: PERRL, no conjunctival injection, and symmetrical lids HENT: Atraumatic external nose and ears. Moist mucous membranes. Neck: Symmetric, trachea midline, No thyromegaly. CVS: RRR, No murmurs or gallops. Peripheral pulses 2+ and equal in all extremities RESP: Unlabored respiratory effort. Clear to auscultation bilaterally. GI: Nontender/Nondistended, No rebound or guarding. No tenderness to chest MSK:Extremities w/o deformity, Normal Active ROM Skin: Warm, Dry. No rashes or lesions. Neuro: Normal Muscle tone, No focal neurological deficits. Psych: Awake, Alert, & Oriented x3. Appropriate mood and affect. Const Vital Signs, click to edit/add: Vital Signs - 24 hr 07/29/24 06:20 07/29/24 06:22 07/29/24 06:24 Temperature 97.8 F Pulse Rate 86 95 Pulse Rate [Right Pulse Oximeter] 90 Respiratory Rate 20 18 11 L Blood Pressure 146/106 H 162/107 H Blood Pressure [Left Upper Arm] 146/101 H Pulse Oximetry 96 96 98 Oxygen Delivery Method Room Air 07/29/24 06:39 07/29/24 06:41 07/29/24 06:45 Temperature Pulse Rate 76 76 73 Pulse Rate [Right Pulse Oximeter] Respiratory Rate 22 23 18 Blood Pressure 129/103 H 130/92 H 98/52 L Blood Pressure [Left Upper Arm] Pulse Oximetry 96 94 97 Oxygen Delivery Method 07/29/24 06:49 07/29/24 06:51 07/29/24 06:52 Temperature Pulse Rate 62 72 73 Pulse Rate [Right Pulse Oximeter] Respiratory Rate 13 20 39 H Blood Pressure 97/66 91/63 Blood Pressure [Left Upper Arm] Pulse Oximetry 89 92 92 Oxygen Delivery Method 07/29/24 06:56 07/29/24 07:01 07/29/24 07:06 Temperature Pulse Rate 74 78 85 Pulse Rate [Right Pulse Oximeter] Respiratory Rate 35 H Blood Pressure 116/73 116/82 129/81 Blood Pressure [Left Upper Arm] Pulse Oximetry 89 90 92 Oxygen Delivery Method 07/29/24 07:11 07/29/24 07:14 07/29/24 07:16 Temperature Pulse Rate 66 64 Pulse Rate [Right Pulse Oximeter] Respiratory Rate 36 H Blood Pressure 132/85 137/90 H 129/83 Blood Pressure [Left Upper Arm] Pulse Oximetry 93 94 Oxygen Delivery Method 07/29/24 07:40 07/29/24 07:46 07/29/24 08:01 Temperature Pulse Rate 83 84 90 Pulse Rate [Right Pulse Oximeter] Respiratory Rate 33 H 22 Blood Pressure 139/88 131/89 124/83 Blood Pressure [Left Upper Arm] Pulse Oximetry 92 94 95 Oxygen Delivery Method Course Vital Signs Vital signs: Initial Vital Signs Respiratory Effort Normal, Spontaneous, Non-Labored 07/29/24 06:16 Respiratory Depth Normal 07/29/24 06:16 Respiratory Pattern Normal 07/29/24 06:16 Vital Signs Temperature 97.8 F 07/29/24 06:20 Pulse Rate 90 07/29/24 06:20 Respiratory Rate 20 07/29/24 06:20 Blood Pressure 146/101 H 07/29/24 06:20 Pulse Oximetry 96 07/29/24 06:20 Oxygen Delivery Method Room Air 07/29/24 06:20 Temperature 97.8 F 07/29/24 06:20 Pulse Rate 96 07/29/24 08:31 Respiratory Rate 17 07/29/24 08:31 Blood Pressure 129/83 07/29/24 08:31 Pulse Oximetry 96 07/29/24 08:31 Oxygen Delivery Method Room Air 07/29/24 06:20 Medications Administered Medications: Discontinued Medications Generic Name Dose Route Start Last Admin Trade Name Wayne PRN Reason Stop Dose Admin Aspirin 324 mg 07/29/24 06:32 07/29/24 06:39 Aspirin 81 Mg Tab.Chew PO 07/29/24 06:33 324 mg ONCE ONE Administration Sodium Chloride 1,000 mls @ 1,000 mls/hr 07/29/24 07:05 07/29/24 07:37 0.9 % Sodium Chloride 1000 Ml IV 07/29/24 08:04 Infused .Q1H SCARLETT Infusion Lidocaine/Aluminum/Magnesium/Simeth 30 ml 07/29/24 06:39 07/29/24 06:58 Gi Cocktail (Visc Lido/Antacid) 30 Ml PO 07/29/24 06:40 30 ml ONCE ONE Administration Morphine Sulfate 4 mg 07/29/24 07:16 07/29/24 07:21 Morphine 4 Mg/Ml Inj IVP 07/29/24 07:17 4 mg ONCE ONE Administration Nitroglycerin 0.4 mg 07/29/24 06:32 07/29/24 06:37 Nitroglycerin 0.4 Mg Tab.Subl SUBLINGUAL 07/29/24 06:33 0.4 mg ONCE ONE Administration MDM - Chest Pain MDM Narrative Medical decision making narrative: Patient is a 73-year-old male presenting for chest pain. The differential diagnosis of chest pain is broad and includes common etiologies such as musculoskeletal strain, GERD, pneumonia, etc. More serious etiologies considered include PE, coronary artery disease, pneumothorax, aortic dissection, aortic aneurysm. Will do a D-dimer to look for signs of blood clots. With the recent stress test my concern for ACS is less likely but will order EKG and tro ponin. Chest x-ray ordered look for signs of pneumonia or pneumothorax. Symptoms could also be related to GERD. In case it is ACS I will give him aspirin and a nitro. Will also check a BMP, CBC, viral swabs, magnesium. Patient's initial point of care troponin was 0.02 initial EKG shows AFib but no obvious signs of a STEMI. He does have very mild elevations in lead 1 but not enough for me to call it a STEMI. He was given nitro for chest pain after that his chest pain did not improve her co-pay he did become hypotensive. A L of fluids was given his blood pressure did eventually improved. I did order a GI cocktail also and that did help his symptoms for short time but then they came back. D-dimer is elevated 2.29. Will do a CTA. I did consider this could possibly be a dissection rather than a PE but are typically expect him to be more hypertensive and tachycardic if it was a dissection. He does have episodes becomes hypoxic to which may be due to shallow breathing. Difficult to say if a PE study order section study would be better but this time I will go with the PE study. He is now back in normal sinus rhythm. No longer see any elevations in lead 1. CTA returned showing a small pericardial effusion. Also basilar opacities most likely secondary to atelectasis. Could also be early infiltrate versus pneumonia and/or aspiration. Also has nodules that need repeat CT follow-up in 3 months. Lab Data Labs: Lab Results 07/29/24 07/29/24 07/29/24 Range/Units 06:22 06:30 09:17 WBC 11.85 H (4.50-11.00) K/uL RBC 4.44 (4.30-5.90) m/uL Hgb 11.9 L (13.5-17.5) gm/dL Hct 37.7 (37.0-53.0) % MCV 85 (80-100) fL MCH 27 (26-34) pg MCHC 32 (32-36) gm/dL RDW Coeff of Bette 14.2 (11.5-15.5) % Plt Count 367 (140-440) K/uL Neut % (Auto) 74.9 H (42.0-72.0) % Lymph % (Auto) 14.7 L (20-44) % [place] % (Auto) 8.8 (0.0-11.0) % Eos % (Auto) 1.3 (0.0-7.0) % Baso % (Auto) 0.1 (0.0-3.0) % Neut # (Auto) 8.90 H (1.7-7.0) K/uL Lymph # (Auto) 1.70 (0.90-2.90) K/uL [place] # (Auto) 1.00 H (0.00-0.90) K/UL Eos # (Auto) 0.20 (0.00-0.50) K/uL Baso # (Auto) 0.00 (0.00-0.30) K/uL Abs Immat Gran (auto) 0.00 (0.00-0.30) K/uL Imm/Tot Granulo (auto) 0.2 % D-Dimer Quant (PE/DVT) 2.29 H (0.00-0.50) ug/ml Sodium 139 (135-149) mmol/L Potassium 4.5 (3.6-5.1) mmol/L Chloride 104 (96-114) mmol/L Carbon Dioxide 28 (20-32) mmol/L Anion Gap 7 (7-15) mEq/L BUN 15 (7-30) mg/dL Creatinine 0.9 (0.5-1.5) mg/dL Estimated Creat Clear 72.16 Estimated GFR 91 ml/min Glucose 119 H (60-115) mg/dL Calcium 9.2 (8.4-10.6) mg/dL Magnesium 2.0 (1.5-2.6) mg/dL Troponin I < 0.01 < 0.01 (0.01-0.04) ng/mL SARS-CoV-2 (PCR) Negative SARS-CoV-2 (Negative) Influenza Type A (PCR) Negative PCR FLU A (Negative) Influenza Type B (PCR) Negative PCR FLU B (Negative) RSV (PCR) Negative PCR RSV (Negative) POC Troponin I 0.02 (0.01-0.04) ng/ml ECG Data Attestation: I personally reviewed and interpreted this ECG as follows: Prior ECG tracings: not available for review Interpretation: Initial EKG at 06:24: AFib with rate of 92 beats per minute, difficult to determine QT interval and some spots on his some areas appear like a flutter. Overall I believe the QT interval is normal. Normal axis, no T-wave abnormalities. Some very mild elevations in lead 1 Repeat EKG at 07:15: Normal sinus rhythm with a rate 69 beats per minute, normal intervals, normal axis, no ST or T-wave abnormalities. Discharge Plan Discharge Clinical Impression: Pericarditis Patient Disposition: Home, Self-Care Condition: Improved Instructions: Acute Pericarditis (ED) Additional Instructions: I believe your symptoms are secondary to pericarditis. This is an inflammatory process and the main treatment is NSAIDs such as ibuprofen or aspirin. For ibuprofen you take 600 mg every 8 hours for 7-10 days and then tapered down over the next few weeks. First Line treatment also includes colchicine. He should have close follow-up with the primary care provider. You also have pulmonary nodules that were seen on your CT scan the need follow- up CT in 3 months Prescriptions: New ibuprofen 800 mg tablet 800 mg PO Q8H PRN (Reason: pain) Qty: 30 0RF colchicine 0.6 mg tablet 0.6 mg PO BID Qty: 30 0RF No Action rosuvastatin 10 mg tablet 10 mg PO QPM aspirin 81 mg capsule 81 mg PO DAILY Follow Up/Referrals: Osman Peralta MD [Primary Care Provider, Family Practice] Stand Alone Forms: [email or web address] Info Instructions
[2024-07-29 06:35] LABS: Troponin, Point-of-Care* 0.02 ng/ml (0.01-0.04)
[2024-07-29] MEDS: NITROGLYCERIN 0.4 MG TAB.SUBL SUBLINGUAL (06:37)
[2024-07-29] MEDS: ASPIRIN 81 MG TAB.CHEW 324 MG PO (06:39)
[2024-07-29 06:43] LABS: Basophils Percent Auto 0.1 % (0.0-3.0); Eosinophils Percent Auto 1.3 % (0.0-7.0); Hematocrit 37.7 % (37.0-53.0); Hemoglobin* 11.9 gm/dL (13.5-17.5); Immature Granulocytes Pct Auto 0.2 %; Lymphocytes Percent Auto 14.7 % (20-44); Mean Corpuscular HGB Conc 32 gm/dL (32-36); Mean Corpuscular Hemoglobin 27 pg (26-34); Mean Corpuscular Volume 85 fL (80-100); Monocytes Percent Auto 8.8 % (0.0-11.0); Neutrophils Percent Auto 74.9 % (42.0-72.0); Platelet Count* 367 K/uL (140-440); RDW Coefficient of Variation % 14.2 % (11.5-15.5); Red Blood Count 4.44 m/uL (4.30-5.90); White Blood Count* 11.85 K/uL (4.50-11.00)
[2024-07-29 06:44] LABS: Slide Review Reflex No
[2024-07-29 06:45] LABS: Chloride* 104 mmol/L (96-114); Sodium* 139 mmol/L (135-149)
[2024-07-29 06:46] LABS: Potassium* 4.5 mmol/L (3.6-5.1)
[2024-07-29 06:48] LABS: Blood Urea Nitrogen* 15 mg/dL (7-30); Creatinine* 0.9 mg/dL (0.5-1.5); Est. Creatinine Clearance* 72.16; Estimated Glomerular Filt Rate 91 ml/min
[2024-07-29 06:49] LABS: Anion Gap 7 mEq/L (7-15); Calcium* 9.2 mg/dL (8.4-10.6); Carbon Dioxide* 28 mmol/L (20-32); Glucose* 119 mg/dL (60-115)
[2024-07-29] MEDS: GI COCKTAIL (VISC LIDO/ANTACID) 30 ML PO (06:58)
[2024-07-29 07:00] LABS: D Dimer Quantitative* 2.29 ug/ml (0.00-0.50)
[2024-07-29 07:02] LABS: Troponin I* < 0.01 ng/mL (0.01-0.04)
[2024-07-29] MEDS ORDERED: 0.9 % SODIUM CHLORIDE 1000 ml 1,000 ML IV (07:05)
--- NOTE | 2024-07-29 07:05 | CRLHL7_ITS ---
For Patients: As a result of the Century Cures Act, medical imaging exams and procedure reports are released immediately into your electronic medical record. You may view this report before your referring provider. If you have questions, please contact your health care provider. INDICATION: Chest pain COMPARISON: 10/08/2023 TECHNIQUE: : CT examination of the chest was performed with the uneventful intravenous administration of 95 cc of Isovue 370 while thin axial sections were obtained from above the apices of the lungs to the lung bases. The examination was timed as a pulmonary artery angiogram. 3D reformat/MIP imaging was provided Please note that all CT scans at this facility use dose modulation, iterative reconstruction, and/or weight-based dosing when appropriate to reduce radiation dose to as low as reasonably achievable. FINDINGS: : HEART and MEDIASTINUM: The heart is enlarged. There are no enlarged mediastinal lymph nodes. A small pericardial effusion is noted. PULMONARY ARTERIAL CIRCULATION: There is no visible intraluminal filling defect to suggest pulmonary embolus. LUNGS and PLEURAL SPACES: Basilar opacities probably largely due to atelectasis. Slightly more confluent opacities are noted at the posterior bases which could be early infiltrate or aspiration. A few scattered nodules are noted but are poorly seen due to atelectasis. Largest cyst at the medial left base measuring about 12 millimeters. Recommend a follow-up CT scan in 3 months to see if these resolve.. VISUALIZED UPPER ABDOMEN: The limited visualized upper abdominal structures appear normal. OSSEOUS STRUCTURES: Age-appropriate appearance. No acute fracture or destructive process. TUBES and LINES: None. IMPRESSION: 1. There is no finding of pulmonary embolus. 2. Mildly enlarged heart. Small pericardial effusion. No adenopathy or mediastinal mass. 3. Basilar opacities probably largely due to atelectasis. Slightly more confluent opacities at both posterior bases could be early infiltrate/pneumonia or aspiration. 4. A few nodules are identified but partially obscured by atelectasis. The largest cyst at the medial left base measuring about 12 millimeters. Recommend a follow-up noncontrast chest CT in 3 months to reassess the nodules. Please note that all CT scans at this facility use dose modulation, iterative reconstruction, and/or weight-based dosing when appropriate to reduce radiation dose to as low as reasonably achievable. Dictated by Tk Jones MD @ 07/29/2024 7:49:50 AM (Electronically Signed)
[2024-07-29] MEDS: MORPHINE 4 MG/ML INJ IVP (07:21)
[2024-07-29 07:37] LABS: PCR FLU A Negative PCR FLU A (Negative); PCR FLU B Negative PCR FLU B (Negative); PCR RSV Negative PCR RSV (Negative); SARS PCR* Negative SARS-CoV-2 (Negative)
[2024-07-29 10:27] LABS: Troponin I* < 0.01 ng/mL (0.01-0.04)
--- NOTE | 2024-07-29 10:50 | ED.GENADULT ---
HPI - General Adult General Chief complaint: Chest Pain Stated complaint: Chest pain Time Seen by Provider: 07/29/24 06:30 Source: patient Mode of arrival: ambulatory Limitations: no limitations History of Present Illness HPI narrative: This patient was signed out to me by Dr. Hayes at 8:00 a.m. on 07/29/2024-shift change. Very pleasant 73-year-old gentleman presents to the ER on the overnight shift with chest pain. Has had recent fairly extensive cardiac workup negative for coronary causes of chest pain or ACS. Presenting symptoms tonight are suggestive for pericarditis. He has positional, sharp chest pain. Also has a very small pericardial effusion noted on chest CT imaging. Dr. Hayes feels that it would be reasonable to check a 2nd set of troponins 3 hours after the 1st to make sure there was no signs of acute coronary syndrome or associated myocarditis. If the 2nd troponin remains undetectable, Dr. Hayes feels the patient can be discharged home. He would recommend we start on a course of NSAIDs and colchicine (prescriptions written). And patient will follow-up with his PCP and image assembler. I recheck the patient at the bedside. We discussed the presenting symptoms and plan of care in detail. Patient is hemodynamically stable, breathing easily. He notes tremendous improvement in his pain after receiving Toradol given by Dr. Hayes. He feels comfortable discharging to home. Questions answered. Repeat troponin was negative. Patient was discharged as per Dr. Hayes's plan Related Data Home Medications ?Medication ?Instructions ?Recorded ?Confirmed aspirin 81 mg capsule 81 mg PO DAILY 07/29/24 07/29/24 rosuvastatin 10 mg tablet 10 mg PO QPM 07/29/24 07/29/24 Previous Rx's ?Medication ?Instructions ?Recorded colchicine 0.6 mg tablet 0.6 mg PO BID #30 tabs 07/29/24 ibuprofen 800 mg tablet 800 mg PO Q8H PRN pain #30 tabs 07/29/24 Allergies Allergy/AdvReac Type Severity Reaction Status Date / Time No Known Drug Allergies Allergy Verified 07/29/24 06:27 [facility] Medical History Elevated coronary artery calcium score ?R93.1 - Abnormal findings on diagnostic imaging of heart and coronary circulation (ICD-10) Hyperlipidemia ?E78.5 - Hyperlipidemia, unspecified (ICD-10) Pulmonary nodules ?R91.8 - Other nonspecific abnormal finding of lung field (ICD-10) Achilles tendinitis ?M76.60 - Achilles tendinitis, unspecified leg (ICD-10) PMR (polymyalgia rheumatica) ?M35.3 - Polymyalgia rheumatica (ICD-10) Atrial fibrillation ?I48.91 - Unspecified atrial fibrillation (ICD-10) Surgical History History of colonoscopy ?Z98.890 - Other specified postprocedural states (ICD-10) Social History Smoking Status: Never smoker Second hand tobacco smoke exposure: No How often do you have a drink containing alcohol: never AUDIT-C Alcohol total score: 0 Non-prescribed substance use: denies use Exam Const: Vital Signs, click to edit/add: Vital Signs - 24 hr 07/29/24 06:20 07/29/24 06:22 07/29/24 06:24 Temperature 97.8 F Pulse Rate 86 95 Pulse Rate [Right Pulse Oximeter] 90 Respiratory Rate 20 18 11 L Blood Pressure 146/106 H 162/107 H Blood Pressure [Le ft Upper Arm] 146/101 H Pulse Oximetry 96 96 98 Oxygen Delivery Me thod Room Air 07/29/24 06:39 07/29/24 06:41 07/29/24 06:45 Temperature Pulse Rate 76 76 73 Pulse Rate [Right Pulse Oximeter] Respiratory Rate 22 23 18 Blood Pressure 129/103 H 130/92 H 98/52 L Blood Pressure [Le ft Upper Arm] Pulse Oximetry 96 94 97 Oxygen Delivery Me thod 07/29/24 06:49 07/29/24 06:51 07/29/24 06:52 Temperature Pulse Rate 62 72 73 Pulse Rate [Right Pulse Oximeter] Respiratory Rate 13 20 39 H Blood Pressure 97/66 91/63 Blood Pressure [Le ft Upper Arm] Pulse Oximetry 89 92 92 Oxygen Delivery Me thod 07/29/24 06:56 07/29/24 07:01 07/29/24 07:06 Temperature Pulse Rate 74 78 85 Pulse Rate [Right Pulse Oximeter] Respiratory Rate 35 H Blood Pressure 116/73 116/82 129/81 Blood Pressure [Le ft Upper Arm] Pulse Oximetry 89 90 92 Oxygen Delivery Me thod 07/29/24 07:11 07/29/24 07:14 07/29/24 07:16 Temperature Pulse Rate 66 64 Pulse Rate [Right Pulse Oximeter] Respiratory Rate 36 H Blood Pressure 132/85 137/90 H 129/83 Blood Pressure [Le ft Upper Arm] Pulse Oximetry 93 94 Oxygen Delivery Me thod 07/29/24 07:40 07/29/24 07:46 07/29/24 08:01 Temperature Pulse Rate 83 84 90 Pulse Rate [Right Pulse Oximeter] Respiratory Rate 33 H 22 Blood Pressure 139/88 131/89 124/83 Blood Pressure [Le ft Upper Arm] Pulse Oximetry 92 94 95 Oxygen Delivery Me thod 07/29/24 08:16 07/29/24 08:31 Temperature Pulse Rate 89 96 Pulse Rate [Right Pulse Oximeter] Respiratory Rate 19 17 Blood Pressure 117/77 129/83 Blood Pressure [Le ft Upper Arm] Pulse Oximetry 96 96 Oxygen Delivery Me thod Course Vital Signs Vital signs: Initial Vital Signs Respiratory Effort Normal, Spontaneous, Non-Labored 07/29/24 06:16 Respiratory Depth Normal 07/29/24 06:16 Respiratory Pattern Normal 07/29/24 06:16 Vital Signs Temperature 97.8 F 07/29/24 06:20 Pulse Rate 90 07/29/24 06:20 Respiratory Rate 20 07/29/24 06:20 Blood Pressure 146/101 H 07/29/24 06:20 Pulse Oximetry 96 07/29/24 06:20 Oxygen Delivery Method Room Air 07/29/24 06:20 Temperature 97.8 F 07/29/24 06:20 Pulse Rate 96 07/29/24 08:31 Respiratory Rate 17 07/29/24 08:31 Blood Pressure 129/83 07/29/24 08:31 Pulse Oximetry 96 07/29/24 08:31 Oxygen Delivery Method Room Air 07/29/24 06:20 Medications Administered Medications: Discontinued Medications Generic Name Dose Route Start Last Admin Trade Name Freq PRN Reason Stop Dose Admin Aspirin 324 mg 07/29/24 06:32 07/29/24 06:39 Aspirin 81 Mg Tab.Chew PO 07/29/24 06:33 324 mg ONCE ONE Administration Sodium Chloride 1,000 mls @ 1,000 mls/hr 07/29/24 07:05 06/10/25 07:37 0.9 % Sodium Chloride 1000 Ml IV 07/29/24 08:04 Infused .Q1H SCARLETT Infusion Lidocaine/Aluminum/Magnesium/Simeth 30 ml 07/29/24 06:39 07/29/24 06:58 Gi Cocktail (Visc Lido/Antacid) 30 Ml PO 07/29/24 06:40 30 ml ONCE ONE Administration Morphine Sulfate 4 mg 07/29/24 07:16 07/29/24 07:21 Morphine 4 Mg/Ml Inj IVP 07/29/24 07:17 4 mg ONCE ONE Administration Nitroglycerin 0.4 mg 07/29/24 06:32 07/29/24 06:37 Nitroglycerin 0.4 Mg Tab.Subl SUBLINGUAL 07/29/24 06:33 0.4 mg ONCE ONE Administration Medical Decision Making Lab Data Labs: Lab Results 07/29/24 07/29/24 07/29/24 Range/Units 06:22 06:30 09:17 WBC 11.85 H (4.50-11.00) K/uL RBC 4.44 (4.30-5.90) m/uL Hgb 11.9 L (13.5-17.5) gm/dL Hct 37.7 (37.0-53.0) % MCV 85 (80-100) fL MCH 27 (26-34) pg MCHC 32 (32-36) gm/dL RDW Coeff of Bette 14.2 (11.5-15.5) % Plt Count 367 (140-440) K/uL Neut % (Auto) 74.9 H (42.0-72.0) % Lymph % (Auto) 14.7 L (20-44) % [place] % (Auto) 8.8 (0.0-11.0) % Eos % (Auto) 1.3 (0.0-7.0) % Baso % (Auto) 0.1 (0.0-3.0) % Neut # (Auto) 8.90 H (1.7-7.0) K/uL Lymph # (Auto) 1.70 (0.90-2.90) K/uL [place] # (Auto) 1.00 H (0.00-0.90) K/UL Eos # (Auto) 0.20 (0.00-0.50) K/uL Baso # (Auto) 0.00 (0.00-0.30) K/uL Abs Immat Gran (auto) 0.00 (0.00-0.30) K/uL Imm/Tot Granulo (auto) 0.2 % D-Dimer Quant (PE/DVT) 2.29 H (0.00-0.50) ug/ml Sodium 139 (135-149) mmol/L Potassium 4.5 (3.6-5.1) mmol/L Chloride 104 (96-114) mmol/L Carbon Dioxide 28 (20-32) mmol/L Anion Gap 7 (7-15) mEq/L BUN 15 (7-30) mg/dL Creatinine 0.9 (0.5-1.5) mg/dL Estimated Creat Clear 72.16 Estimated GFR 91 ml/min Glucose 119 H (60-115) mg/dL Calcium 9.2 (8.4-10.6) mg/dL Magnesium 2.0 (1.5-2.6) mg/dL Troponin I < 0.01 < 0.01 (0.01-0.04) ng/mL SARS-CoV-2 (PCR) Negative SARS-CoV-2 (Negative) Influenza Type A (PCR) Negative PCR FLU A (Negative) Influenza Type B (PCR) Negative PCR FLU B (Negative) RSV (PCR) Negative PCR RSV (Negative) POC Troponin I 0.02 (0.01-0.04) ng/ml Discharge Plan Discharge Clinical Impression: Pericarditis Qualifiers: Pericarditis type: unspecified type Chronicity: unspecified Qualified Code(s): I31.9 - Disease of pericardium, unspecified Patient Disposition: Home, Self-Care Condition: Improved Instructions: Acute Pericarditis (ED) Additional Instructions: I believe your symptoms are secondary to pericarditis. This is an inflammatory process and the main treatment is NSAIDs such as ibuprofen or aspirin. For ibuprofen you take 600 mg every 8 hours for 7-10 days and then tapered down over the next few weeks. First Line treatment also includes colchicine. He should have close follow-up with the primary care provider. You also have pulmonary nodules that were seen on your CT scan the need follow-up CT in 3 months Prescriptions: New ibuprofen 800 mg tablet 800 mg PO Q8H PRN (Reason: pain) Qty: 30 0RF colchicine 0.6 mg tablet 0.6 mg PO BID Qty: 30 0RF No Action rosuvastatin 10 mg tablet 10 mg PO QPM aspirin 81 mg capsule 81 mg PO DAILY Follow Up/Referrals: Osman Peralta MD [Primary Care Provider, Family Practice] Stand Alone Forms: [employer] Info Instructions
== END 2024-07-29 11:00 | disposition home or self-care (01) ==
PROVIDERS: Emergency Medicine; Emergency Provider Student in an Organized Health Care Education/Training Program; PCP Surgery
DX: I31.9 Disease of pericardium, unspecified (principal); R07.9 Chest pain, unspecified
CPT/HCPCS: 36415; 71275; 80048; 83735; 83880; 84484; 85025; 85379; 87631; 93005; 96374; 99281; 99284; 99285; A9270; J2270; J7030; Q9967

== ENCOUNTER 2024-09-26 07:39 | Outpatient (CLI) | payer MEDICARE, BC, SELFPAY ==
--- NOTE | 2024-09-26 09:29 | P.ANES_ITS ---
Anesthesia Charges Start Date/Time Anesthesia Start Date: 09/26/24 Anesthesia Start Time: 08:42 Stop Date/Time Anesthesia Stop Date: 09/26/24 Anesthesia Stop Time: 09:38 Summary Extremes of Age - Over 70 or under 1: MDA Coding CPT Codes CPT Codes: ANES UPR LWR GI NDSC PX - 34998 ([id number]) P2 - PATIENT W/MILD SYST DISEASE, QK - FREELANCE DESIGNER 2-4 CNCRNT ANES PROC, QX - NEUROPSYCHOLOGIST SVC W/ MD MED DIRECTION Additional Codes: Summary - Extremes of Age - Over 70 or under 1: MDA ([id number])
--- NOTE | 2024-09-26 09:29 | W.ANESCHARGE ---
Anesthesia Charges Start Date/Time Anesthesia Start Date: 09/26/24 Anesthesia Start Time: 08:42 Stop Date/Time Anesthesia Stop Date: 09/26/24 Anesthesia Stop Time: 09:38 Summary Extremes of Age - Over 70 or under 1: MDA Coding CPT Codes CPT Codes: ANES UPR LWR GI NDSC PX - 78746 ([id number]) P2 - PATIENT W/MILD SYST DISEASE, QK - CONTROL INSPECTOR 2-4 CNCRNT ANES PROC, QX - PAYMENT SPECIALIST SVC W/ MD MED DIRECTION Additional Codes: Summary - Extremes of Age - Over 70 or under 1: MDA ([id number])
--- NOTE | 2024-09-26 09:39 | P.ANES_ITS ---
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
--- NOTE | 2024-09-26 09:39 | W.ANESCHARGE ---
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
== END 2024-09-26 07:40 | disposition home or self-care (01) ==
PROVIDERS: PCP Surgery; Visit Provider Internal Medicine Gastroenterology
DX: D50.9 Iron deficiency anemia, unspecified (principal); K92.2 Gastrointestinal hemorrhage, unspecified; Q43.8 Other specified congenital malformations of intestine
CPT/HCPCS: 00813; 43239; 45378; 88305; 88342; 99100; J2704; J3010